=== PATIENT | female | born 1990 | race African-American/Black ===

== ENCOUNTER 2024-08-31 10:08 | Emergency (ER) | payer SELFPAY ==
[~2024-08-31] VITALS: Ht 167.6 cm; Wt 142.0 kg
[2024-08-31 10:23] VITALS: O2SAT 97
[2024-08-31] MEDS ORDERED: TOPUD PO (10:50)
[2024-08-31] MEDS ORDERED: IBUP-2028 MT (10:50)
[2024-08-31] MEDS ORDERED: AMOX1TAB16 MT (10:50)
[2024-08-31 12:04] VITALS: BP 150/95; PULSE 82; RESP 18; TEMP 36.6; O2SAT 97
== END 2024-08-31 12:04 | disposition home or self-care (01) ==
LOC: ER 11:04
DX: S40.022A Contusion of left upper arm, initial encounter (principal); H66.91 Otitis media, unspecified, right ear; Z79.899 Other long term (current) drug therapy; X58.XXXA Exposure to other specified factors, initial encounter; Y93.89 Activity, other specified; Y92.410 Unspecified street and highway as the place of occurrence of the external cause; Y99.8 Other external cause status
CPT/HCPCS: 73080; 99283